=== PATIENT | male | born 1990 | race Caucasian/White ===

== ENCOUNTER 2016-12-06 06:39 | Emergency (ER) | payer OTHER ==
[2016-12-06] MEDS ORDERED: Sodium Chloride 0.9% 1000 ML 1,000 ML IV ONE (06:40)
[2016-12-06 06:56] VITALS: BP 0/0; PULSE 0
--- NOTE | 2016-12-06 06:58 | ERPHSYRPT ---
- History of Present Illness Time Seen by Provider: 12/06/16 06:50 Source: EMS Exam Limitations: clinical condition Physician History: The patient is a 26-year-old male brought in by ambulance undergoing CPR. The ambulance was called at 552 by someone at his residence. The patient was found on the floor not breathing and unresponsive. This person started CPR until the EMS arrived. EMS continued CPR. The patient was in asystole and was not breathing. Narcan 2 mg was given in addition to epinephrine 1 mg 4 and bicarbonate. EMS reports the patient was cold to the touch currently arrived. EMS arrived to the ER at 640. Family arrived shortly thereafter. The mother states that he had no past medical history. Details of CPR and what was done by EMS was clearly stated to the mother. CPR was ceased at 648. Timing/Duration: today Severity: severe Modifying Factors: Improves With: nothing Allergies/Adverse Reactions: No Known Drug Allergies Allergy (Unverified 10/02/15 15:10) Home Medications: No Home Meds [No Home Meds] 1 ea UD 10/02/15 [History] Hx Tetanus, Diphtheria Vaccination/Date Given: No Hx Influenza Vaccination/Date Given: No Hx Pneumococcal Vaccination/Date Given: No - Review of Systems Constitutional: Other (unresponsive, not breathing, no heart rate,) All Other Systems: Unable due to condition - Past Medical History Pertinent Past Medical History: Yes Neurological History: No Pertinent History ENT History: No Pertinent History Cardiac History: No Pertinent History Respiratory History: No Pertinent History Endocrine Medical History: No Pertinent History Musculoskeletal History: No Pertinent History GI Medical History: No Pertinent History History: No Pertinent History Psycho-Social History: No Pertinent History Male Reproductive Disorders: No Pertinent History - Past Surgical History Past Surgical History: No - Social History Smoking Status: Never smoker Exposure to second hand smoke: Yes Drug Use: none Patient Lives Alone: No - Physical Exam General Appearance: other (comatose, cold) Eye Exam: other (pupils fixed and dialated.) Respiratory Exam: other (no respiratory effort) Cardiovascular Exam: other (no heart rate, asystole) Gastrointestinal/Abdomen Exam: other (no bowel sounds) Neurologic Exam: other (unresponsive) Skin Exam: cyanosis, other (cold) SpO2 Interpretation: hypoxic - Progress Progress Note: 12/06/16 07:00 The patient's condition and prognosis were explained to the mother. CPR was halted at 06:48. Counseled pt/family regarding: diagnosis - Departure Time of Disposition: 07:01 Departure Disposition: (06:48) Clinical Impression: Cardiac asystole Condition: Critical Care Time: No Additional Instructions: The patient was brought to the emergency room in asystole. The patient had been in asystole during the entire process of CPR by EMS. The deputy chief executive was contacted and an autopsy has been ordered.
== END 2016-12-06 10:35 | disposition expired ==
LOC: ED 06:39
DX: I46.9 Cardiac arrest, cause unspecified (principal)
CPT/HCPCS: 36000; 82962; 94799; 99291